=== PATIENT | female | born 1985 | race Caucasian/White ===

== ENCOUNTER 2016-09-16 21:05 | Inpatient (IN) | payer OTHER ==
[~2016-09-16] VITALS: Ht 170.2 cm; Wt 54.0 kg
[2016-09-16] MEDS ORDERED: MORPHINE SULFATE 4 MG/ML, 1ML IVPush PRN (21:30)
[2016-09-16] MEDS ORDERED: ONDANSETRON 2MG/ML, 2ML IVPush ONE (21:30)
[2016-09-16] MEDS ORDERED: SODIUM CHLORIDE FLUSH 10ML SYR IVF ONE (21:30)
[2016-09-16] MEDS ORDERED: SODIUM CHLORIDE 0.9% 1,000ML IVBOLUS ONE (21:30)
[2016-09-16] MEDS ORDERED: PROMETHAZINE 25 MG/ML, 1ML IM ONE (21:30)
[2016-09-16 22:02] LABS: ASPARTATE AMINO TRANSFERASE 82 U/L (15-37); BLOOD UREA NITROGEN 23 mg/dL (7-18)
[2016-09-17] MEDS ORDERED: PROMETHAZINE 25 MG/ML, 1ML ONE (00:14)
[2016-09-17] MEDS ORDERED: PROMETHAZINE 25 MG/ML, 1ML IM ONE (00:30)
[2016-09-17] MEDS ORDERED: ENOXAPARIN 40 MG/0.4 ML SQ SCH (01:00)
[2016-09-17] MEDS ORDERED: TEMAZEPAM 15 MG CAPSULE PO PRN (01:00)
[2016-09-17] MEDS ORDERED: morphine SULFATE 10 MG/ML, 1ML IVPush PRN (01:00)
[2016-09-17] MEDS ORDERED: PROMETHAZINE 25 MG/ML, 1ML IM PRN (01:00)
[2016-09-17 01:19] VITALS: BP 130/81
[2016-09-17] MEDS ORDERED: AMIT75TA PO (01:35)
[2016-09-17] MEDS ORDERED: TIZA2CAP PO (01:35)
[2016-09-17] MEDS: PANTOPRAZOLE 40 MG IV IVPush SCH ×2 (02:00→08:04)
[2016-09-17 03:08] VITALS: BP 121/75
[2016-09-17] MEDS: ONDANSETRON 2MG/ML, 2ML IVPush PRN (06:01)
[2016-09-17 09:22] VITALS: BP 110/75
[2016-09-17 13:27] VITALS: BP 106/86
[2016-09-17] MEDS: IBUPROFEN 200 MG TABLET PO PRN (15:35)
[2016-09-17 19:24] VITALS: BP 114/76
[2016-09-17] MEDS ORDERED: DIPHENHYDRAMINE 50 MG CAPSULE PO PRN (19:30)
[2016-09-17] MEDS ORDERED: TIZANIDINE 4MG TABLET PO SCH (21:00)
[2016-09-17] MEDS ORDERED: AMITRIPTYLINE 25 MG TABLET PO SCH (21:00)
[2016-09-18] MEDS ORDERED: QUETIAPINE 25MG TABLET PO ONE
[2016-09-18] MEDS: IBUPROFEN 200 MG TABLET PO PRN ×2 (00:12→09:47)
[2016-09-18] MEDS: ONDANSETRON 2MG/ML, 2ML IVPush PRN (00:12)
[2016-09-18 03:10] VITALS: BP 108/67
[2016-09-18 05:51] LABS: ASPARTATE AMINO TRANSFERASE 57 U/L (15-37); BLOOD UREA NITROGEN 11 mg/dL (7-18)
[2016-09-18] MEDS: PANTOPRAZOLE 40 MG IV IVPush SCH (07:30)
[2016-09-18 08:05] VITALS: BP 113/81
[2016-09-18 12:58] VITALS: BP 122/79
== END 2016-09-18 13:59 | DRG 439 ==
LOC: ED 23:59 → EDIP 09-17 00:11 → 3NE 09-17 01:33
DX: K85.90 Acute pancreatitis without necrosis or infection, unspecified (principal); F50.00 Anorexia nervosa, unspecified; I10 Essential (primary) hypertension; Z80.52 Family history of malignant neoplasm of bladder; Z82.49 Family history of ischemic heart disease and other diseases of the circulatory system; Z87.891 Personal history of nicotine dependence; K76.0 Fatty (change of) liver, not elsewhere classified; Z88.1 Allergy status to other antibiotic agents; Z88.2 Allergy status to sulfonamides
CPT/HCPCS: 36415; 76700; 80053; 81003; 83690; 83735; 84100; 84703; 85025; 87324; 96361; 96372; 96374; 96375; J2405; J2550; C9113; J7030